=== PATIENT | male | born 1965 | race Caucasian/White ===

== ENCOUNTER 2018-07-14 22:00 | Emergency (ER) | payer MEDICAID ==
[2018-07-14 22:20] VITALS: BMI 30.1
--- NOTE | 2018-07-14 22:53 | ED PDOC ---
Arrival/HPI - General Chief Complaint: Headache Time Seen by Provider: 07/14/18 22:24 Historian: Patient - History of Present Illness Narrative History of Present Illness (Text): 07/14/18 22:47 53yo male with pmhx of hypertension and Diabetes who present with complaint of right temporal headache and nose bleed that started 2hours ago. Notes that the nose bleed stopped while in ED waiting room, but he is still having the headac he. Reports history of headache in the past, but never with nose bleed. States he did not take any medication for the headache. Denies congestion, focal weakness, neck pain, fever, rash, nausea, vomiting, any other complaint. Past Medical History - Provider Review Nursing Documentation Reviewed: Yes - Infectious Disease Hx of Infectious Diseases: None - Cardiac Hx Hypertension: Yes - Endocrine/Metabolic Hx Diabetes Mellitus Type 2: Yes Hx Hyperthyroidism: Yes - Psychiatric Hx Substance Use: No - Anesthesia Hx Anesthesia: No Family/Social History - Physician Review Nursing Documentation Reviewed: Yes Family/Social History: Unknown Family HX Smoking Status: Heavy Smoker > 10 Cigarettes Daily Hx Alcohol Use: No Hx Substance Use: No Allergies/Home Meds Allergies/Adverse Reactions: Allergies No Known Allergies Allergy (Verified 07/14/18 22:43) Home Medications: Home Meds Medication Instructions Recorded Confirmed No Known Home Med 07/14/18 07/14/18 Review of Systems - Physician Review All systems were reviewed & negative as marked: Yes - Review of Systems Constitutional: Normal Eyes: Normal ENT: Epistaxis Respiratory: Normal Cardiovascular: Normal Gastrointestinal: Normal Genitourinary Male: Normal Musculoskeletal: Normal Skin: Normal Neurological: Headache. absent: Dizziness, Focal Weakness, Gait Changes Endocrine: Normal Hemo/Lymphatic: Normal Psychiatric: Normal Physical Exam Vital Signs Reviewed: Yes Vital Signs Temp Pulse Resp BP Pulse Ox 07/14/18 22:23 97.6 F 76 18 136/77 96 Temperature: Afebrile Blood Pressure: Normal Pulse: Regular Respiratory Rate: Normal Appearance: Positive for: Well-Appearing, Non-Toxic, Comfortable Pain Distress: None Mental Status: Positive for: Alert and Oriented X 3 - Systems Exam Head: Present: Atraumatic, Normocephalic Pupils: Present: PERRL Extroacular Muscles: Present: EOMI Conjunctiva: Present: Normal Mouth: Present: Moist Mucous Membranes Neck: Present: Normal Range of Motion Respiratory/Chest: Present: Clear to Auscultation, Good Air Exchange. No: Respiratory Distress, Accessory Muscle Use Cardiovascular: Present: Regular Rate and Rhythm, Normal S1, S2. No: Murmurs Abdomen: No: Tenderness, Distention, Peritoneal Signs Back: Present: Normal Inspection Upper Extremity: Present: Normal Inspection. No: Cyanosis, Edema Lower Extremity: Present: Normal Inspection. No: Edema Neurological: Present: GCS=15, CN II-XII Intact, Speech Normal, Motor Func Grossly Intact, Normal Sensory Function, Normal Cerebellar Funct, Other (No focal neurological deficit). No: Gait Normal Skin: Present: Warm, Dry, Normal Color. No: Rashes Psychiatric: Present: Alert, Oriented x 3, Normal Insight, Normal Concentration Medical Decision Making ED Course and Treatment: 07/15/18 01:44 PT presented to ED for stated history. He was neurologically intact. No active nose bleed was noted in ED. Tylenol Head CT His headache improved in ED Head CT CT SCAN OF THE BRAIN WITHOUT IV CONTRAST IMPRESSION: Normal unenhanced CT scan of the brain. Electronically signed on Jul 15, 2018 12:14:40 AM EST by: Sruthi Kinsey M.D., Certified by ABR, MSK, Neuroradiology Result was DW the pt. Advised to keep nose moist, sleep with humidifier and f/u with his PMD/ENT TRT ED for worsening symptoms - RAD Interpretation Radiology Orders: 07/14/18 22:43 HEAD W/O CONTRAST [CT] Stat - Medication Orders Current Medication Orders: Discontinued Medications Acetaminophen (Tylenol 325mg Tab) 650 mg PO STAT STA Stop: 07/14/18 22:45 Disposition/Present on Arrival - Present on Arrival Any Indicators Present on Arrival: No History of DVT/PE: No History of Uncontrolled Diabetes: Yes Urinary Catheter: No History of Decub. Ulcer: No History Surgical Site Infection Following: None - Disposition Have Diagnosis and Disposition been Completed?: Yes Diagnosis: Headache, Epistaxis Disposition: HOME/ ROUTINE Disposition Time: 01:25 Patient Plan: Discharge Patient Problems: Current Active Problems Problem Status Onset Epistaxis Acute Headache Acute Condition: STABLE Discharge Instructions (ExitCare): Headache, Adult, Nosebleeds (DC) Additional Instructions: Follow up with your Doctor/ENT Return to ED for any worsening symptoms Referrals: Bastianelli,[place], DO [Staff Provider] - Follow up with primary Forms: [facility] (Citizen [place])
[2018-07-15 01:49] VITALS: BP 128/72; PULSE 68; RESP 17; TEMP 97.9; O2SAT 98
--- NOTE | 2018-07-15 09:33 | CT ---
Date of service: 07/14/2018 PROCEDURE: CT HEAD WITHOUT CONTRAST. HISTORY: headache COMPARISON: Is TECHNIQUE: Axial computed tomography images were obtained through the head/brain without intravenous contrast. Supplemental Coronal and Sagittal projections created and reviewed. Radiation dose: Total exam DLP = 866.81 mGy-cm. This CT exam was performed using one or more of the following dose reduction techniques: Automated exposure control, adjustment of the mA and/or kV according to patient size, and/or use of iterative reconstruction technique. FINDINGS: HEMORRHAGE: No intracranial hemorrhage. BRAIN: No mass effect or edema. No atrophy or chronic microvascular ischemic changes. VENTRICLES: Unremarkable. No hydrocephalus. CALVARIUM: Unremarkable. PARANASAL SINUSES: Unremarkable as visualized. No significant inflammatory changes. MASTOID AIR CELLS: Unremarkable as visualized. No inflammatory changes. OTHER FINDINGS: None. IMPRESSION: No acute intracranial abnormalities. No significant findings to account for the clinical presentation. Concordant results (preliminary interpretation) provided by [employer]. Procedure Completed: 23:51. Preliminary Report: Dictated and Authenticated: 00:14. Final Interpretation: 09:29. July 15, 2018
== END 2018-07-15 01:49 | disposition home or self-care (01) ==
LOC: ED 22:00
DX: R51 Headache (principal); R04.0 Epistaxis; I10 Essential (primary) hypertension; E11.9 Type 2 diabetes mellitus without complications; F17.210 Nicotine dependence, cigarettes, uncomplicated; E05.90 Thyrotoxicosis, unspecified without thyrotoxic crisis or storm